=== PATIENT | female | born 1950 | race Caucasian/White ===

== ENCOUNTER 2018-04-09 19:26 | Inpatient (IN) | payer MEDICARE ==
[~2018-04-09] VITALS: Ht 157.5 cm; Wt 91.2 kg
[2018-04-09] MEDS ORDERED: SODIUM CHLORIDE 0.9% 1000ML BAG (SEPSIS BOLUS) IV ONE (20:30)
[2018-04-09 22:07] LABS: BASOPHILS % 0.5 % (0.0-2.0); EOSINOPHILS % 1.3 % (0.0-5.0); HEMATOCRIT. 42.9 % (36.0-48.0); HEMOGLOBIN. 14.4 g/dL (12.0-16.0); LYMPHOCYTES % 13.6 % (20.0-50.0); MEAN CORPUSCULAR HEMOGLOBIN 29.2 pg (28.0-32.0); MEAN CORPUSCULAR VOLUME 87.1 fL (81.0-99.0); MONOCYTES % 10.9 % (2.0-8.0); NEUTROPHILS % 73.7 % (40.0-76.0); PLATELET 255 x1000/uL (130-400); RED BLOOD CELL COUNT 4.93 mill/uL (4.2-5.4); RED CELL DISTRIBUTION WIDTH 13.5 % (11.6-14.6)
[2018-04-09 22:12] LABS: CHLORIDE 95 mEq/L (98-107)
[2018-04-09 22:15] LABS: INR 1.2; PROTHROMBIN TIME 11.7 sec (9.1-11.1)
[2018-04-09 22:16] LABS: ETHANOL BLOOD < 10 mg/dL
[2018-04-09 23:56] LABS: *AMPHETAMINES SCREEN URINE NEGATIVE (NEGATIVE); *BARBITURATES SCREEN URINE NEGATIVE (NEGATIVE); *BENZODIAZEPINES SCREEN URINE NEGATIVE (NEGATIVE); *COCAINE SCREEN URINE NEGATIVE (NEGATIVE); METHADONE URINE SCREEN NEGATIVE (NEGATIVE); OPIATES URINE SCREEN NEGATIVE (NEGATIVE)
[2018-04-09 23:57] LABS: CANNABINOID URINE SCREEN NEGATIVE (NEGATIVE); PHENCYCLIDINE URINE SCREEN NEGATIVE (NEGATIVE)
[2018-04-10 00:11] LABS: COLOR URINE YELLOW (YELLOW)
[2018-04-10 00:12] LABS: CLARITY URINE CLOUDY (CLEAR); PH URINE 5.5 (4.5-8.0); PROTEIN URINE NEGATIVE (NEGATIVE); SPECIFIC GRAVITY URINE 1.017 (1.005-1.030)
[2018-04-10 00:13] LABS: KETONES URINE NEGATIVE (NEGATIVE); NITRITE URINE NEGATIVE (NEGATIVE); OCCULT BLOOD URINE 3+ (NEGATIVE)
[2018-04-10 00:14] LABS: LEUKOCYTE ESTERASE URINE 2+ (NEGATIVE)
[2018-04-10] MEDS ORDERED: CEFTRIAXONE 1 G PREMIX 50 ML IV ONE (00:30)
[2018-04-10 09:57] VITALS: BP 124/59
[2018-04-10] MEDS ORDERED: ONDANSETRON HCL 4MG/2ML INJ IV PRN (10:30)
[2018-04-10] MEDS ORDERED: CLONIDINE 0.1MG TABLET PO PRN (10:30)
[2018-04-10] MEDS ORDERED: IPRATROPIUM/ALBUTEROL 0.5-3(2.5)MG/3ML NEB HHN PRN (10:30)
[2018-04-10] MEDS: MORPHINE SULFATE 4 MG/ML CPJ (NOT FOR IM USE) IV PRN (11:25)
[2018-04-10] MEDS ORDERED: INFLUENZA VIRUS VACCINE(AFLURIA) 0.5ML SYR IM ONE (11:30)
[2018-04-10] MEDS ORDERED: PNEUMOCOCCAL 23-VAL P-SAC VAC 0.5 ML IM ONE (11:30)
[2018-04-10] MEDS: SODIUM CHLORIDE 0.45% 1,000 ML IV SCH (13:41)
[2018-04-10] MEDS: LEVOFLOXACIN 750MG PREMIX 150 ML IV SCH (13:42)
[2018-04-10] MEDS: NICOTINE 21MG PATCH TD SCH (14:34)
[2018-04-10 16:00] VITALS: BP 123/68
[2018-04-10] MEDS ORDERED: LORAZEPAM 2MG/ML CPJ IV SCH (16:30)
[2018-04-10 20:00] VITALS: BP 99/68
[2018-04-11] VITALS: BP 126/69
[2018-04-11] MEDS: SODIUM CHLORIDE 0.45% 1,000 ML IV SCH ×2 (03:23→11:35)
[2018-04-11 04:00] VITALS: BP 142/58
[2018-04-11 07:11] LABS: BASOPHILS % 0.9 % (0.0-2.0); EOSINOPHILS % 5.5 % (0.0-5.0); HEMATOCRIT. 36.1 % (36.0-48.0); LYMPHOCYTES % 20.6 % (20.0-50.0); MEAN CORPUSCULAR HEMOGLOBIN 29.1 pg (28.0-32.0); MEAN CORPUSCULAR VOLUME 87.1 fL (81.0-99.0); MEAN PLATELET VOLUME 9.9 fl (7.4-10.4); MONOCYTES % 10.5 % (2.0-8.0); NEUTROPHILS % 62.5 % (40.0-76.0); PLATELET 260 x1000/uL (130-400); RED BLOOD CELL COUNT 4.14 mill/uL (4.2-5.4); RED CELL DISTRIBUTION WIDTH 13.5 % (11.6-14.6)
[2018-04-11 08:00] VITALS: BP 149/67
[2018-04-11 09:08] LABS: CHLORIDE 104 mEq/L (98-107)
[2018-04-11] MEDS: TRAMADOL 50MG TABLET PO PRN (09:29)
[2018-04-11] MEDS: NICOTINE 21MG PATCH TD SCH (09:30)
[2018-04-11] MEDS ORDERED: POTASSIUM CHLORIDE 20MEQ TABLET SR PO NR (09:45)
[2018-04-11] MEDS: ENOXAPARIN 40MG/0.4ML SYR SUBCUT SCH (11:32)
[2018-04-11] MEDS: LEVOFLOXACIN 750MG PREMIX 150 ML IV SCH (11:34)
[2018-04-11 12:00] VITALS: BP 13/65
[2018-04-11 12:13] LABS: LDL CHOLESTEROL 73 mg/dL (5-100)
[2018-04-11 12:16] LABS: HDL CHOLESTEROL 23 mg/dL (40-59)
[2018-04-11] MEDS: MORPHINE SULFATE 4 MG/ML CPJ (NOT FOR IM USE) IV PRN (15:31)
[2018-04-11 16:00] VITALS: BP 106/50
[2018-04-11 20:00] VITALS: BP 151/70
[2018-04-12] VITALS: BP 149/71
[2018-04-12 04:00] VITALS: BP 149/81
[2018-04-12] MEDS: SODIUM CHLORIDE 0.45% 1,000 ML IV SCH ×2 (07:01→18:04)
[2018-04-12 08:00] VITALS: BP 122/64
[2018-04-12 08:26] LABS: BASOPHILS % 0.7 % (0.0-2.0); EOSINOPHILS % 1.9 % (0.0-5.0); HEMATOCRIT. 37.3 % (36.0-48.0); HEMOGLOBIN. 12.5 g/dL (12.0-16.0); LYMPHOCYTES % 14.4 % (20.0-50.0); MEAN CORPUSCULAR HEMOGLOBIN 28.9 pg (28.0-32.0); MEAN CORPUSCULAR VOLUME 86.3 fL (81.0-99.0); MEAN PLATELET VOLUME 9.3 fl (7.4-10.4); MONOCYTES % 9.3 % (2.0-8.0); NEUTROPHILS % 73.7 % (40.0-76.0); PLATELET 298 x1000/uL (130-400); RED BLOOD CELL COUNT 4.32 mill/uL (4.2-5.4); RED CELL DISTRIBUTION WIDTH 13.4 % (11.6-14.6)
[2018-04-12 08:56] LABS: CHLORIDE 99 mEq/L (98-107)
[2018-04-12] MEDS ORDERED: POTASSIUM CHLORIDE 20MEQ TABLET SR PO SCH (09:00)
[2018-04-12] MEDS: NICOTINE 21MG PATCH TD SCH (09:41)
[2018-04-12] MEDS: ENOXAPARIN 40MG/0.4ML SYR SUBCUT SCH (09:41)
[2018-04-12 12:00] VITALS: BP 138/71
[2018-04-12] MEDS: LEVOFLOXACIN 750MG PREMIX 150 ML IV SCH (13:43)
[2018-04-12 14:31] LABS: T4 FREE 1.77 ng/dL (0.76-1.46)
[2018-04-12 16:00] VITALS: BP 141/67
[2018-04-12] MEDS: MORPHINE SULFATE 4 MG/ML CPJ (NOT FOR IM USE) IV PRN (18:07)
[2018-04-12 20:00] VITALS: BP 126/57
[2018-04-13] VITALS: BP 136/65
[2018-04-13 04:00] VITALS: BP 106/59
[2018-04-13] MEDS: SODIUM CHLORIDE 0.45% 1,000 ML IV SCH ×2 (07:07→22:50)
[2018-04-13 07:09] LABS: EOSINOPHILS % 4.4 % (0.0-5.0); HEMATOCRIT. 36.6 % (36.0-48.0); HEMOGLOBIN. 12.2 g/dL (12.0-16.0); LYMPHOCYTES % 21.7 % (20.0-50.0); MEAN CORPUSCULAR HEMOGLOBIN 28.8 pg (28.0-32.0); MEAN CORPUSCULAR VOLUME 86.4 fL (81.0-99.0); MONOCYTES % 10.4 % (2.0-8.0); NEUTROPHILS % 62.5 % (40.0-76.0); PLATELET 285 x1000/uL (130-400); RED BLOOD CELL COUNT 4.24 mill/uL (4.2-5.4); RED CELL DISTRIBUTION WIDTH 13.5 % (11.6-14.6)
[2018-04-13 07:29] LABS: CHLORIDE 102 mEq/L (98-107)
[2018-04-13 08:00] VITALS: BP 130/62
[2018-04-13] MEDS: NICOTINE 21MG PATCH TD SCH (09:18)
[2018-04-13] MEDS: ENOXAPARIN 40MG/0.4ML SYR SUBCUT SCH (09:19)
[2018-04-13 12:00] VITALS: BP 130/62
[2018-04-13] MEDS: LEVOFLOXACIN 750MG PREMIX 150 ML IV SCH (12:47)
[2018-04-13] MEDS: MORPHINE SULFATE 4 MG/ML CPJ (NOT FOR IM USE) IV PRN ×2 (12:48→19:37)
[2018-04-13 16:00] VITALS: BP 120/61
[2018-04-13 20:00] VITALS: BP 130/64
[2018-04-13] MEDS: METHIMAZOLE 5MG TABLET PO SCH (20:30)
[2018-04-14] VITALS: BP 163/63
[2018-04-14 04:00] VITALS: BP 124/85
[2018-04-14] MEDS: MORPHINE SULFATE 4 MG/ML CPJ (NOT FOR IM USE) IV PRN ×2 (05:12→11:22)
[2018-04-14 07:42] LABS: HEMATOCRIT. 39.6 % (36.0-48.0); HEMOGLOBIN. 13.4 g/dL (12.0-16.0); LYMPHOCYTES % 20.6 % (20.0-50.0); MEAN CORPUSCULAR HEMOGLOBIN 29.3 pg (28.0-32.0); MEAN CORPUSCULAR VOLUME 86.7 fL (81.0-99.0); MEAN PLATELET VOLUME 8.7 fl (7.4-10.4); MONOCYTES % 9.6 % (2.0-8.0); NEUTROPHILS % 65.8 % (40.0-76.0); PLATELET 337 x1000/uL (130-400); RED BLOOD CELL COUNT 4.57 mill/uL (4.2-5.4); RED CELL DISTRIBUTION WIDTH 13.5 % (11.6-14.6)
[2018-04-14 08:00] VITALS: BP 156/72
[2018-04-14 08:36] LABS: CHLORIDE 101 mEq/L (98-107)
[2018-04-14] MEDS: TRAMADOL 50MG TABLET PO PRN ×2 (09:25→22:11)
[2018-04-14] MEDS: ENOXAPARIN 40MG/0.4ML SYR SUBCUT SCH (09:27)
[2018-04-14] MEDS: NICOTINE 21MG PATCH TD SCH (09:27)
[2018-04-14] MEDS: METHIMAZOLE 5MG TABLET PO SCH (09:32)
[2018-04-14] MEDS: SODIUM CHLORIDE 0.45% 1,000 ML IV SCH ×2 (11:28→22:10)
[2018-04-14] MEDS: LEVOFLOXACIN 750MG PREMIX 150 ML IV SCH (11:29)
[2018-04-14 12:00] VITALS: BP 154/74
[2018-04-14 16:00] VITALS: BP 168/86
[2018-04-14 20:00] VITALS: BP 157/77
[2018-04-14] MEDS: PROPRANOLOL HCL 10MG TABLET PO SCH (22:09)
[2018-04-15] VITALS: BP 144/82
[2018-04-15 04:00] VITALS: BP 149/79
[2018-04-15] MEDS ORDERED: LIDOCAINE HCL/EPINEPHRINE 1%-EPI 1:100,000 20 ML VIAL INFIL SCH (07:00)
[2018-04-15 08:00] VITALS: BP 146/65
[2018-04-15 09:44] LABS: BASOPHILS % 1.3 % (0.0-2.0); EOSINOPHILS % 5.8 % (0.0-5.0); HEMATOCRIT. 41.5 % (36.0-48.0); HEMOGLOBIN. 13.9 g/dL (12.0-16.0); MEAN CORPUSCULAR HEMOGLOBIN 29.5 pg (28.0-32.0); MEAN PLATELET VOLUME 8.7 fl (7.4-10.4); MONOCYTES % 10.8 % (2.0-8.0); NEUTROPHILS % 61.1 % (40.0-76.0); PLATELET 329 x1000/uL (130-400); RED BLOOD CELL COUNT 4.71 mill/uL (4.2-5.4); RED CELL DISTRIBUTION WIDTH 13.6 % (11.6-14.6)
[2018-04-15] MEDS: NICOTINE 21MG PATCH TD SCH (09:58)
[2018-04-15] MEDS: METHIMAZOLE 5MG TABLET PO SCH (09:59)
[2018-04-15] MEDS: ENOXAPARIN 40MG/0.4ML SYR SUBCUT SCH (09:59)
[2018-04-15] MEDS: PROPRANOLOL HCL 10MG TABLET PO SCH ×2 (10:00→22:09)
[2018-04-15] MEDS: MORPHINE SULFATE 4 MG/ML CPJ (NOT FOR IM USE) IV PRN (10:02)
[2018-04-15 10:39] LABS: CHLORIDE 100 mEq/L (98-107)
[2018-04-15 12:00] VITALS: BP 137/58
[2018-04-15] MEDS: LEVOFLOXACIN 750MG PREMIX 150 ML IV SCH (13:03)
[2018-04-15 16:00] VITALS: BP 137/60
[2018-04-15 20:00] VITALS: BP 111/64
[2018-04-15] MEDS: SODIUM CHLORIDE 0.45% 1,000 ML IV SCH ×2 (22:09→23:50)
[2018-04-15] MEDS: ACETAMINOPHEN 325MG TABLET PO PRN (23:49)
[2018-04-16] VITALS: BP 158/63
[2018-04-16] MEDS: MORPHINE SULFATE 4 MG/ML CPJ (NOT FOR IM USE) IV PRN ×2 (02:23→22:51)
[2018-04-16 04:00] VITALS: BP 125/44
[2018-04-16 07:08] LABS: BASOPHILS % 1.2 % (0.0-2.0); EOSINOPHILS % 5.4 % (0.0-5.0); HEMATOCRIT. 38.9 % (36.0-48.0); HEMOGLOBIN. 13.4 g/dL (12.0-16.0); LYMPHOCYTES % 28.3 % (20.0-50.0); MEAN CORPUSCULAR VOLUME 86.7 fL (81.0-99.0); MEAN PLATELET VOLUME 8.2 fl (7.4-10.4); NEUTROPHILS % 53.1 % (40.0-76.0); PLATELET 347 x1000/uL (130-400); RED BLOOD CELL COUNT 4.48 mill/uL (4.2-5.4); RED CELL DISTRIBUTION WIDTH 13.7 % (11.6-14.6)
[2018-04-16 08:00] VITALS: BP 124/56
[2018-04-16] MEDS: PROPRANOLOL HCL 10MG TABLET PO SCH ×2 (08:55→22:54)
[2018-04-16] MEDS: METHIMAZOLE 5MG TABLET PO SCH (08:56)
[2018-04-16] MEDS: NICOTINE 21MG PATCH TD SCH (08:57)
[2018-04-16] MEDS: ENOXAPARIN 40MG/0.4ML SYR SUBCUT SCH (08:57)
[2018-04-16] MEDS: LEVOFLOXACIN 750MG PREMIX 150 ML IV SCH (11:19)
[2018-04-16 12:00] VITALS: BP 123/52
[2018-04-16 15:06] LABS: CHLORIDE 99 mEq/L (98-107)
[2018-04-16 15:06] LABS: T4 FREE 1.65 ng/dL (0.76-1.46)
[2018-04-16 15:08] LABS: HDL CHOLESTEROL 31 mg/dL (40-59)
[2018-04-16 15:09] LABS: LDL CHOLESTEROL 113 mg/dL (5-100)
[2018-04-16 16:00] VITALS: BP 129/59
[2018-04-16 20:00] VITALS: BP 137/69
[2018-04-17] VITALS: BP 146/56
[2018-04-17] MEDS: SODIUM CHLORIDE 0.45% 1,000 ML IV SCH ×2 (02:30→19:44)
[2018-04-17 04:00] VITALS: BP 145/63
[2018-04-17] MEDS: MORPHINE SULFATE 4 MG/ML CPJ (NOT FOR IM USE) IV PRN ×2 (05:13→19:43)
[2018-04-17 07:22] LABS: BASOPHILS % 1.2 % (0.0-2.0); EOSINOPHILS % 5.4 % (0.0-5.0); HEMATOCRIT. 39.9 % (36.0-48.0); HEMOGLOBIN. 13.5 g/dL (12.0-16.0); LYMPHOCYTES % 27.9 % (20.0-50.0); MEAN CORPUSCULAR HEMOGLOBIN 29.3 pg (28.0-32.0); MEAN CORPUSCULAR VOLUME 86.8 fL (81.0-99.0); MEAN PLATELET VOLUME 8.6 fl (7.4-10.4); MONOCYTES % 10.9 % (2.0-8.0); NEUTROPHILS % 54.6 % (40.0-76.0); PLATELET 326 x1000/uL (130-400); RED CELL DISTRIBUTION WIDTH 13.7 % (11.6-14.6)
[2018-04-17 08:00] VITALS: BP 115/47
[2018-04-17] MEDS: ENOXAPARIN 40MG/0.4ML SYR SUBCUT SCH (08:56)
[2018-04-17] MEDS: NICOTINE 21MG PATCH TD SCH (08:56)
[2018-04-17] MEDS: PROPRANOLOL HCL 10MG TABLET PO SCH ×2 (08:56→20:09)
[2018-04-17] MEDS: METHIMAZOLE 5MG TABLET PO SCH (08:56)
[2018-04-17 09:32] LABS: CHLORIDE 101 mEq/L (98-107)
[2018-04-17] MEDS: LEVOFLOXACIN 750MG PREMIX 150 ML IV SCH (11:59)
[2018-04-17 12:00] VITALS: BP 136/52
[2018-04-17 16:00] VITALS: BP 107/56
[2018-04-17 18:00] LABS: FOLIC ACID (FOLATE) SERUM 7.3 ng/mL (>5.38)
[2018-04-17 20:00] VITALS: BP 125/53
[2018-04-17] MEDS: LORAZEPAM 2MG/ML CPJ IV PRN (21:39)
[2018-04-18] VITALS: BP 132/55
[2018-04-18] MEDS: MORPHINE SULFATE 4 MG/ML CPJ (NOT FOR IM USE) IV PRN ×4 (00:02→16:16)
[2018-04-18 04:00] VITALS: BP 132/61
[2018-04-18] MEDS: SODIUM CHLORIDE 0.45% 1,000 ML IV SCH ×2 (05:56→18:26)
[2018-04-18 08:00] VITALS: BP 134/64
[2018-04-18] MEDS: NICOTINE 21MG PATCH TD SCH (08:53)
[2018-04-18] MEDS: METHIMAZOLE 5MG TABLET PO SCH (08:53)
[2018-04-18] MEDS: PROPRANOLOL HCL 10MG TABLET PO SCH ×2 (08:53→20:16)
[2018-04-18] MEDS: ENOXAPARIN 40MG/0.4ML SYR SUBCUT SCH (08:55)
[2018-04-18 12:00] VITALS: BP 94/74
[2018-04-18 16:00] VITALS: BP 144/61
[2018-04-18 20:00] VITALS: BP 137/64
[2018-04-18] MEDS: ACETAMINOPHEN 325MG TABLET PO PRN (20:16)
[2018-04-18] MEDS: LORAZEPAM 2MG/ML CPJ IV PRN (23:03)
[2018-04-19] VITALS: BP 127/68
[2018-04-19 04:00] VITALS: BP 125/65
[2018-04-19] MEDS: SODIUM CHLORIDE 0.45% 1,000 ML IV SCH ×2 (04:32→17:24)
[2018-04-19 08:00] VITALS: BP 145/62
[2018-04-19] MEDS: METHIMAZOLE 5MG TABLET PO SCH (09:04)
[2018-04-19] MEDS: PROPRANOLOL HCL 10MG TABLET PO SCH ×2 (09:04→20:06)
[2018-04-19] MEDS: ENOXAPARIN 40MG/0.4ML SYR SUBCUT SCH (09:04)
[2018-04-19] MEDS: NICOTINE 21MG PATCH TD SCH (09:05)
[2018-04-19] MEDS ORDERED: LIDOCAINE HCL/EPINEPHRINE 1%-EPI 1:100,000 30 ML VIAL INFIL SCH (10:15)
[2018-04-19] MEDS: HYDROCODONE/ACETAMINOPHEN 5/325MG TABLET PO PRN ×3 (11:17→22:55)
[2018-04-19 12:00] VITALS: BP 140/53
[2018-04-19 15:38] VITALS: BP 143/65
[2018-04-19 20:00] VITALS: BP 129/50
[2018-04-19] MEDS: ENOXAPARIN 30MG/0.3ML SYR SUBCUT SCH (20:06)
[2018-04-19] MEDS: MORPHINE SULFATE 4 MG/ML CPJ (NOT FOR IM USE) IV PRN (20:07)
[2018-04-20] VITALS: BP_SYST 119; BP_SYST 133; BP_DIAS 40; BP_DIAS 73
[2018-04-20] MEDS: LORAZEPAM 2MG/ML CPJ IV PRN ×2 (00:28→07:56)
[2018-04-20 04:00] VITALS: BP 133/50
[2018-04-20] MEDS: HYDROCODONE/ACETAMINOPHEN 5/325MG TABLET PO PRN ×3 (04:49→20:23)
[2018-04-20 07:26] LABS: BASOPHILS % 1.3 % (0.0-2.0); EOSINOPHILS % 7.2 % (0.0-5.0); HEMATOCRIT. 36.6 % (36.0-48.0); HEMOGLOBIN. 12.3 g/dL (12.0-16.0); LYMPHOCYTES % 35.1 % (20.0-50.0); MEAN CORPUSCULAR HEMOGLOBIN 29.2 pg (28.0-32.0); MEAN CORPUSCULAR VOLUME 87.1 fL (81.0-99.0); MEAN PLATELET VOLUME 7.9 fl (7.4-10.4); MONOCYTES % 11.2 % (2.0-8.0); NEUTROPHILS % 45.2 % (40.0-76.0); PLATELET 309 x1000/uL (130-400); RED CELL DISTRIBUTION WIDTH 13.6 % (11.6-14.6)
[2018-04-20 07:44] LABS: CHLORIDE 105 mEq/L (98-107)
[2018-04-20 08:00] VITALS: BP 112/53
[2018-04-20] MEDS: PROPRANOLOL HCL 10MG TABLET PO SCH ×2 (09:16→20:33)
[2018-04-20] MEDS: METHIMAZOLE 5MG TABLET PO SCH ×2 (09:16→18:12)
[2018-04-20] MEDS: NICOTINE 21MG PATCH TD SCH (09:17)
[2018-04-20] MEDS: ENOXAPARIN 30MG/0.3ML SYR SUBCUT SCH ×2 (09:17→20:32)
[2018-04-20] MEDS: SODIUM CHLORIDE 0.45% 1,000 ML IV SCH ×2 (11:28→20:34)
[2018-04-20 12:00] VITALS: BP 125/51
[2018-04-20] MEDS: MORPHINE SULFATE 4 MG/ML CPJ (NOT FOR IM USE) IV PRN (13:37)
[2018-04-20 16:00] VITALS: BP 143/63
[2018-04-20 20:00] VITALS: BP 132/48
[2018-04-21] VITALS: BP 160/70
[2018-04-21] MEDS: MORPHINE SULFATE 4 MG/ML CPJ (NOT FOR IM USE) IV PRN (00:39)
[2018-04-21 04:00] VITALS: BP 129/57
[2018-04-21 07:33] LABS: BASOPHILS % 1.1 % (0.0-2.0); EOSINOPHILS % 3.3 % (0.0-5.0); HEMATOCRIT. 36.9 % (36.0-48.0); HEMOGLOBIN. 12.5 g/dL (12.0-16.0); LYMPHOCYTES % 31.3 % (20.0-50.0); MEAN CORPUSCULAR HEMOGLOBIN 29.3 pg (28.0-32.0); MEAN CORPUSCULAR VOLUME 86.5 fL (81.0-99.0); MEAN PLATELET VOLUME 8.3 fl (7.4-10.4); MONOCYTES % 9.4 % (2.0-8.0); NEUTROPHILS % 54.9 % (40.0-76.0); PLATELET 322 x1000/uL (130-400); RED BLOOD CELL COUNT 4.26 mill/uL (4.2-5.4); RED CELL DISTRIBUTION WIDTH 13.6 % (11.6-14.6)
[2018-04-21 07:46] LABS: CHLORIDE 103 mEq/L (98-107)
[2018-04-21 08:00] VITALS: BP 163/59
[2018-04-21] MEDS: METHIMAZOLE 5MG TABLET PO SCH ×2 (08:40→16:18)
[2018-04-21] MEDS: PROPRANOLOL HCL 10MG TABLET PO SCH ×2 (08:40→20:33)
[2018-04-21] MEDS: NICOTINE 21MG PATCH TD SCH (08:41)
[2018-04-21] MEDS: ENOXAPARIN 30MG/0.3ML SYR SUBCUT SCH ×2 (08:41→20:33)
[2018-04-21 12:00] VITALS: BP 110/58
[2018-04-21] MEDS: HYDROCODONE/ACETAMINOPHEN 5/325MG TABLET PO PRN ×2 (12:53→18:36)
[2018-04-21] MEDS: SODIUM CHLORIDE 0.45% 1,000 ML IV SCH (12:53)
[2018-04-21 16:00] VITALS: BP 144/69
[2018-04-21 20:00] VITALS: BP 127/52
[2018-04-21] MEDS: LORAZEPAM 2MG/ML CPJ IV PRN (20:34)
[2018-04-22] VITALS: BP 127/49
[2018-04-22] MEDS: SODIUM CHLORIDE 0.45% 1,000 ML IV SCH (01:09)
[2018-04-22 04:00] VITALS: BP 147/62
[2018-04-22 06:44] LABS: BASOPHILS % 1.4 % (0.0-2.0); EOSINOPHILS % 7.1 % (0.0-5.0); HEMATOCRIT. 38.2 % (36.0-48.0); LYMPHOCYTES % 31.6 % (20.0-50.0); MEAN CORPUSCULAR HEMOGLOBIN 29.7 pg (28.0-32.0); MEAN CORPUSCULAR VOLUME 86.8 fL (81.0-99.0); MEAN PLATELET VOLUME 7.8 fl (7.4-10.4); MONOCYTES % 10.6 % (2.0-8.0); NEUTROPHILS % 49.3 % (40.0-76.0); PLATELET 325 x1000/uL (130-400); RED CELL DISTRIBUTION WIDTH 14.3 % (11.6-14.6)
[2018-04-22 06:55] LABS: CHLORIDE 105 mEq/L (98-107)
[2018-04-22] MEDS ORDERED: BUPIVACAINE HCL/EPINEPHRINE 0.5%/0.0005 30ML ONE (07:10)
[2018-04-22] MEDS ORDERED: NORMAL SALINE 0.9% 10 ML SYR ONE (07:10)
[2018-04-22] MEDS ORDERED: BUPIVACAINE HCL 0.5% (5MG/ML) 50ML ONE (07:10)
[2018-04-22] MEDS ORDERED: BACITRACIN 50,000 UNITS/VIAL ONE (07:10)
[2018-04-22] MEDS ORDERED: VANCOMYCIN HCL 500 MG/VIAL ONE (07:10)
[2018-04-22] MEDS ORDERED: MIDAZOLAM HCL 2 MG/2 ML VIAL ONE (07:43)
[2018-04-22] MEDS ORDERED: FENTANYL CITRATE/PF 50MCG/ML 2ML VIAL ONE ×4 (07:43→09:05)
[2018-04-22] MEDS ORDERED: GLYCOPYRROLATE 0.2 MG/ML 2ML VIAL ONE ×2 (07:43→08:09)
[2018-04-22] MEDS ORDERED: PROPOFOL 200MG/20ML VIAL IV ONE (07:43)
[2018-04-22] MEDS ORDERED: LIDOCAINE HCL 1% 20ML VIAL (Pyxis) INJ ONE (07:44)
[2018-04-22] MEDS ORDERED: ONDANSETRON HCL 4MG/2ML INJ ONE (07:44)
[2018-04-22] MEDS ORDERED: METOCLOPRAMIDE HCL 10MG/2ML VIAL ONE (07:44)
[2018-04-22] MEDS ORDERED: SUCCINYLCHOLINE CHLORIDE 200MG/10ML IV ONE (07:44)
[2018-04-22] MEDS ORDERED: CEFAZOLIN SODIUM 1000MG/VIAL ONE (07:45)
[2018-04-22] MEDS ORDERED: ROCURONIUM BROMIDE 10MG/ML VIAL 5ML IV ONE (08:08)
[2018-04-22] MEDS ORDERED: NEOSTIGMINE METHYLSULFATE 1MG/ML 10 ML VIAL ONE (08:09)
[2018-04-22] MEDS ORDERED: ROPIVACAINE HCL 10MG/ML 20 ML VIAL EPI ONE (09:13)
[2018-04-22] MEDS ORDERED: HYDROMORPHONE HCL/PF 2MG/ML (OR) ONE (09:37)
[2018-04-22] MEDS ORDERED: SODIUM CHLORIDE 0.9% 1,000 ML IV ONE (09:52)
[2018-04-22] MEDS: MORPHINE SULFATE 4 MG/ML CPJ (NOT FOR IM USE) IV PRN ×3 (09:58→21:02)
[2018-04-22] MEDS ORDERED: ONDANSETRON HCL 4MG/2ML INJ IV PRN (10:00)
[2018-04-22] MEDS: HYDROMORPHONE HCL/PF 2MG/ML CPJ IV PRN ×3 (10:18→11:08)
[2018-04-22 12:00] VITALS: BP 158/78
[2018-04-22] MEDS: PROPRANOLOL HCL 10MG TABLET PO SCH ×2 (12:35→21:00)
[2018-04-22] MEDS: METHIMAZOLE 5MG TABLET PO SCH ×2 (12:35→17:03)
[2018-04-22] MEDS: ENOXAPARIN 30MG/0.3ML SYR SUBCUT SCH ×2 (12:35→21:01)
[2018-04-22] MEDS: NICOTINE 21MG PATCH TD SCH (12:36)
[2018-04-22] MEDS ORDERED: CEFAZOLIN SODIUM 1000MG/VIAL IV SCH (14:00)
[2018-04-22] MEDS: CEFAZOLIN 1000MG PREMIX 50 ML IV SCH ×2 (15:11→21:01)
[2018-04-22 16:00] VITALS: BP 145/60
[2018-04-22 16:18] LABS: PROTHROMBIN TIME 10.4 sec (9.1-11.1)
[2018-04-22 20:00] VITALS: BP 130/56
[2018-04-22] MEDS: HYDROCODONE/ACETAMINOPHEN 5/325MG TABLET PO PRN (22:27)
[2018-04-23] VITALS: BP 113/59
[2018-04-23] MEDS: MORPHINE SULFATE 4 MG/ML CPJ (NOT FOR IM USE) IV PRN ×3 (02:07→14:29)
[2018-04-23 04:00] VITALS: BP 118/52
[2018-04-23] MEDS: CEFAZOLIN 1000MG PREMIX 50 ML IV SCH (05:11)
[2018-04-23] MEDS: HYDROCODONE/ACETAMINOPHEN 5/325MG TABLET PO PRN ×3 (05:25→20:23)
[2018-04-23 06:53] LABS: EOSINOPHILS % 4.9 % (0.0-5.0); HEMATOCRIT. 34.4 % (36.0-48.0); HEMOGLOBIN. 11.5 g/dL (12.0-16.0); LYMPHOCYTES % 21.3 % (20.0-50.0); MEAN CORPUSCULAR HEMOGLOBIN 29.3 pg (28.0-32.0); MEAN PLATELET VOLUME 8.3 fl (7.4-10.4); MONOCYTES % 5.5 % (2.0-8.0); NEUTROPHILS % 67.3 % (40.0-76.0); PLATELET 254 x1000/uL (130-400); RED BLOOD CELL COUNT 3.95 mill/uL (4.2-5.4); RED CELL DISTRIBUTION WIDTH 14.1 % (11.6-14.6)
[2018-04-23 07:01] LABS: CHLORIDE 99 mEq/L (98-107)
[2018-04-23 08:00] VITALS: BP 113/60
[2018-04-23] MEDS: METHIMAZOLE 5MG TABLET PO SCH ×2 (08:39→17:54)
[2018-04-23] MEDS: PROPRANOLOL HCL 10MG TABLET PO SCH ×2 (08:40→20:21)
[2018-04-23] MEDS: ENOXAPARIN 30MG/0.3ML SYR SUBCUT SCH ×2 (08:40→20:22)
[2018-04-23] MEDS: NICOTINE 21MG PATCH TD SCH (08:40)
[2018-04-23 12:00] VITALS: BP 112/80
[2018-04-23] MEDS: OXYCODONE HCL 5MG TABLET PO SCH ×2 (14:52→17:54)
[2018-04-23 16:00] VITALS: BP 118/58
[2018-04-23 20:00] VITALS: BP 158/61
[2018-04-24] VITALS: BP 143/54
[2018-04-24] MEDS: HYDROCODONE/ACETAMINOPHEN 5/325MG TABLET PO PRN (02:53)
[2018-04-24 04:00] VITALS: BP 137/64
[2018-04-24] MEDS: MORPHINE SULFATE 4 MG/ML CPJ (NOT FOR IM USE) IV PRN ×2 (05:45→10:39)
[2018-04-24 07:35] LABS: BASOPHILS % 0.9 % (0.0-2.0); EOSINOPHILS % 6.1 % (0.0-5.0); HEMATOCRIT. 33.9 % (36.0-48.0); HEMOGLOBIN. 11.5 g/dL (12.0-16.0); LYMPHOCYTES % 21.7 % (20.0-50.0); MEAN CORPUSCULAR HEMOGLOBIN 29.4 pg (28.0-32.0); MEAN PLATELET VOLUME 8.5 fl (7.4-10.4); MONOCYTES % 6.8 % (2.0-8.0); NEUTROPHILS % 64.5 % (40.0-76.0); PLATELET 221 x1000/uL (130-400); RED BLOOD CELL COUNT 3.89 mill/uL (4.2-5.4); RED CELL DISTRIBUTION WIDTH 14.2 % (11.6-14.6)
[2018-04-24 08:00] VITALS: BP 142/58
[2018-04-24 08:03] LABS: CHLORIDE 101 mEq/L (98-107)
[2018-04-24] MEDS: METHIMAZOLE 5MG TABLET PO SCH ×2 (08:16→17:11)
[2018-04-24] MEDS: PROPRANOLOL HCL 10MG TABLET PO SCH ×2 (08:16→20:38)
[2018-04-24] MEDS: HYDROCODONE/ACETAMINOPHEN 5/325MG TABLET PO SCH (08:18)
[2018-04-24] MEDS: OXYCODONE HCL 5MG TABLET PO SCH ×5 (08:19→20:38)
[2018-04-24] MEDS: ENOXAPARIN 30MG/0.3ML SYR SUBCUT SCH ×2 (08:20→20:37)
[2018-04-24] MEDS: NICOTINE 21MG PATCH TD SCH (08:21)
[2018-04-24 12:00] VITALS: BP 107/41
[2018-04-24] MEDS ORDERED: LIDOCAINE HCL/EPINEPHRINE 1%-EPI 1:100,000 30 ML VIAL INFIL SCH (13:00)
[2018-04-24] MEDS ORDERED: LIDOCAINE HCL/EPINEPHRINE 1%-EPI 1:100,000 20 ML VIAL INFIL SCH (13:02)
[2018-04-24] MEDS ORDERED: POTASSIUM CHLORIDE 20MEQ TABLET SR PO SCH (13:15)
[2018-04-24 16:00] VITALS: BP 127/59
[2018-04-24 20:00] VITALS: BP 133/51
[2018-04-25] VITALS (7 sets, daily range): BP systolic 128–153; BP diastolic 46–65
[2018-04-25] MEDS: MORPHINE SULFATE 10MG/5ML ORAL SOLN UDC PO PRN (02:46)
[2018-04-25 06:55] LABS: HEMATOCRIT. 34.9 % (36.0-48.0); HEMOGLOBIN. 11.9 g/dL (12.0-16.0); MEAN CORPUSCULAR HEMOGLOBIN 29.6 pg (28.0-32.0); MEAN CORPUSCULAR VOLUME 86.8 fL (81.0-99.0); RED BLOOD CELL COUNT 4.02 mill/uL (4.2-5.4); RED CELL DISTRIBUTION WIDTH 14.3 % (11.6-14.6)
[2018-04-25 06:56] LABS: BASOPHILS % 1.2 % (0.0-2.0); EOSINOPHILS % 7.1 % (0.0-5.0); LYMPHOCYTES % 24.9 % (20.0-50.0); MEAN PLATELET VOLUME 8.6 fl (7.4-10.4); MONOCYTES % 10.6 % (2.0-8.0); NEUTROPHILS % 56.2 % (40.0-76.0); PLATELET 236 x1000/uL (130-400)
[2018-04-25 07:08] LABS: CHLORIDE 100 mEq/L (98-107)
[2018-04-25] MEDS: NICOTINE 21MG PATCH TD SCH (09:00)
[2018-04-25] MEDS: HYDROCODONE/ACETAMINOPHEN 5/325MG TABLET PO SCH (09:20)
[2018-04-25] MEDS: PROPRANOLOL HCL 10MG TABLET PO SCH ×2 (09:21→21:39)
[2018-04-25] MEDS: OXYCODONE HCL 5MG TABLET PO SCH ×4 (09:21→21:40)
[2018-04-25] MEDS: ENOXAPARIN 30MG/0.3ML SYR SUBCUT SCH ×2 (09:22→21:40)
[2018-04-25] MEDS: METHIMAZOLE 5MG TABLET PO SCH ×2 (09:22→17:41)
[2018-04-25] MEDS ORDERED: LIDOCAINE HCL/EPINEPHRINE 1%-EPI 1:100,000 30 ML VIAL INFIL SCH (10:30)
[2018-04-25] MEDS ORDERED: LIDOCAINE HCL/EPINEPHRINE 1%-EPI 1:100,000 20 ML VIAL INFIL SCH (10:30)
[2018-04-26] VITALS: BP 136/51
[2018-04-26] MEDS: MORPHINE SULFATE 10MG/5ML ORAL SOLN UDC PO PRN ×2 (03:19→13:10)
[2018-04-26 04:00] VITALS: BP 158/68
[2018-04-26 08:00] VITALS: BP 149/64
[2018-04-26] MEDS: PROPRANOLOL HCL 10MG TABLET PO SCH ×2 (08:28→21:39)
[2018-04-26] MEDS: METHIMAZOLE 5MG TABLET PO SCH ×2 (08:29→18:10)
[2018-04-26] MEDS: HYDROCODONE/ACETAMINOPHEN 5/325MG TABLET PO SCH (08:29)
[2018-04-26] MEDS: OXYCODONE HCL 5MG TABLET PO SCH ×4 (08:29→21:39)
[2018-04-26] MEDS: ENOXAPARIN 30MG/0.3ML SYR SUBCUT SCH ×2 (08:30→21:39)
[2018-04-26] MEDS: NICOTINE 21MG PATCH TD SCH (08:30)
[2018-04-26 12:00] VITALS: BP 124/67
[2018-04-26 16:00] VITALS: BP 157/73
[2018-04-26 20:00] VITALS: BP 141/60
[2018-04-27] VITALS: BP 143/62
[2018-04-27] MEDS: MORPHINE SULFATE 10MG/5ML ORAL SOLN UDC PO PRN (03:46)
[2018-04-27 04:00] VITALS: BP 109/58
[2018-04-27 07:21] LABS: CHLORIDE 100 mEq/L (98-107)
[2018-04-27 07:44] LABS: BASOPHILS % 0.9 % (0.0-2.0); EOSINOPHILS % 5.9 % (0.0-5.0); HEMATOCRIT. 36.6 % (36.0-48.0); HEMOGLOBIN. 12.2 g/dL (12.0-16.0); LYMPHOCYTES % 28.4 % (20.0-50.0); MEAN CORPUSCULAR HEMOGLOBIN 29.1 pg (28.0-32.0); MEAN CORPUSCULAR VOLUME 87.3 fL (81.0-99.0); MEAN PLATELET VOLUME 8.9 fl (7.4-10.4); MONOCYTES % 13.3 % (2.0-8.0); NEUTROPHILS % 51.5 % (40.0-76.0); PLATELET 267 x1000/uL (130-400); RED CELL DISTRIBUTION WIDTH 14.3 % (11.6-14.6)
[2018-04-27 08:00] VITALS: BP 128/60
[2018-04-27] MEDS: NICOTINE 21MG PATCH TD SCH (09:13)
[2018-04-27] MEDS: METHIMAZOLE 5MG TABLET PO SCH ×2 (09:14→17:34)
[2018-04-27] MEDS: PROPRANOLOL HCL 10MG TABLET PO SCH ×2 (09:14→21:45)
[2018-04-27] MEDS: ENOXAPARIN 30MG/0.3ML SYR SUBCUT SCH ×2 (09:14→21:44)
[2018-04-27] MEDS: HYDROCODONE/ACETAMINOPHEN 5/325MG TABLET PO SCH (10:18)
[2018-04-27] MEDS: OXYCODONE HCL 5MG TABLET PO SCH ×4 (10:18→21:45)
[2018-04-27 12:00] VITALS: BP 131/65
[2018-04-27 16:00] VITALS: BP 138/57
[2018-04-27 20:00] VITALS: BP 132/61
[2018-04-27] MEDS ORDERED: LIDOCAINE HCL/EPINEPHRINE 1%-EPI 1:100,000 20 ML VIAL IJ SCH ×2 (22:30)
[2018-04-28] VITALS: BP 128/60
[2018-04-28 04:00] VITALS: BP 124/54
[2018-04-28 07:24] LABS: EOSINOPHILS % 5.4 % (0.0-5.0); HEMATOCRIT. 37.1 % (36.0-48.0); HEMOGLOBIN. 12.2 g/dL (12.0-16.0); LYMPHOCYTES % 28.3 % (20.0-50.0); MEAN CORPUSCULAR HEMOGLOBIN 28.6 pg (28.0-32.0); MEAN CORPUSCULAR VOLUME 87.3 fL (81.0-99.0); MEAN PLATELET VOLUME 8.5 fl (7.4-10.4); NEUTROPHILS % 53.3 % (40.0-76.0); PLATELET 267 x1000/uL (130-400); RED BLOOD CELL COUNT 4.25 mill/uL (4.2-5.4); RED CELL DISTRIBUTION WIDTH 14.5 % (11.6-14.6)
[2018-04-28 07:44] LABS: CHLORIDE 100 mEq/L (98-107)
[2018-04-28 08:00] VITALS: BP 135/59
[2018-04-28] MEDS: PROPRANOLOL HCL 10MG TABLET PO SCH ×2 (08:05→21:57)
[2018-04-28] MEDS: HYDROCODONE/ACETAMINOPHEN 5/325MG TABLET PO SCH (08:06)
[2018-04-28] MEDS: METHIMAZOLE 5MG TABLET PO SCH ×2 (08:06→17:08)
[2018-04-28] MEDS: ENOXAPARIN 30MG/0.3ML SYR SUBCUT SCH ×2 (08:07→21:59)
[2018-04-28] MEDS: OXYCODONE HCL 5MG TABLET PO SCH ×4 (08:07→21:59)
[2018-04-28] MEDS: NICOTINE 21MG PATCH TD SCH (08:08)
[2018-04-28] MEDS: CYANOCOBALAMIN 1000MCG/ML VIAL IM SCH (10:18)
[2018-04-28 12:00] VITALS: BP 125/62
[2018-04-28 16:00] VITALS: BP 135/65
[2018-04-28] MEDS: MORPHINE SULFATE 10MG/5ML ORAL SOLN UDC PO PRN (16:29)
[2018-04-28] MEDS ORDERED: OXYCODONE HCL 5MG TABLET PO PRN (16:30)
[2018-04-28 21:55] VITALS: BP 141/64
[2018-04-29] VITALS: BP 121/58
[2018-04-29 04:00] VITALS: BP 141/52
[2018-04-29 07:47] LABS: EOSINOPHILS % 5.6 % (0.0-5.0); HEMATOCRIT. 38.4 % (36.0-48.0); HEMOGLOBIN. 12.8 g/dL (12.0-16.0); LYMPHOCYTES % 27.9 % (20.0-50.0); MEAN CORPUSCULAR HEMOGLOBIN 29.2 pg (28.0-32.0); MEAN CORPUSCULAR VOLUME 87.4 fL (81.0-99.0); MEAN PLATELET VOLUME 8.6 fl (7.4-10.4); MONOCYTES % 12.1 % (2.0-8.0); NEUTROPHILS % 53.4 % (40.0-76.0); PLATELET 299 x1000/uL (130-400); RED CELL DISTRIBUTION WIDTH 14.4 % (11.6-14.6)
[2018-04-29 08:00] VITALS: BP 116/49
[2018-04-29 08:18] LABS: CHLORIDE 99 mEq/L (98-107)
[2018-04-29] MEDS: NICOTINE 21MG PATCH TD SCH (09:00)
[2018-04-29] MEDS: METHIMAZOLE 5MG TABLET PO SCH ×2 (09:23→17:26)
[2018-04-29] MEDS: CYANOCOBALAMIN 1000MCG/ML VIAL IM SCH (09:23)
[2018-04-29] MEDS: PROPRANOLOL HCL 10MG TABLET PO SCH ×2 (09:23→21:13)
[2018-04-29] MEDS: ENOXAPARIN 30MG/0.3ML SYR SUBCUT SCH ×2 (09:23→21:15)
[2018-04-29] MEDS: HYDROCODONE/ACETAMINOPHEN 5/325MG TABLET PO SCH (09:24)
[2018-04-29] MEDS: OXYCODONE HCL 5MG TABLET PO SCH ×4 (09:25→21:15)
[2018-04-29] MEDS ORDERED: LIDOCAINE HCL/EPINEPHRINE 1%-EPI 1:100,000 20 ML VIAL INFIL NR (09:45)
[2018-04-29 12:00] VITALS: BP 114/59
[2018-04-29 16:00] VITALS: BP 119/62
[2018-04-29 20:00] VITALS: BP 146/56
[2018-04-30] VITALS (7 sets, daily range): BP systolic 113–151; BP diastolic 46–57
[2018-04-30] MEDS: NICOTINE 21MG PATCH TD SCH (09:00)
[2018-04-30] MEDS: OXYCODONE HCL 5MG TABLET PO SCH ×3 (10:09→18:52)
[2018-04-30] MEDS: CYANOCOBALAMIN 1000MCG/ML VIAL IM SCH (10:09)
[2018-04-30] MEDS: PROPRANOLOL HCL 10MG TABLET PO SCH (10:09)
[2018-04-30] MEDS: METHIMAZOLE 5MG TABLET PO SCH ×2 (10:09→18:52)
[2018-04-30] MEDS: ENOXAPARIN 30MG/0.3ML SYR SUBCUT SCH (10:09)
[2018-05-03 14:22] LABS: 25-HYDROXY VITAMIN D3 11 ng/mL (.)
== END 2018-04-30 20:55 | DRG 853 ==
LOC: ER 19:26 → 5WST 22:59 → EDBEDREQTM 23:20 → EDBEDREQ 23:20 → EDBEDREQSVC 23:20 → ENRESERV 04-10 07:06 → 5WST 04-10 10:05
PROVIDERS: ADMIT Internal Medicine; ATTEND Internal Medicine
PROC: 0JB90ZZ Excision of Buttock Subcutaneous Tissue and Fascia, Open Approach (ICD-10-PCS; principal; 2018-04-11)
PROC: 0JB70ZZ Excision of Back Subcutaneous Tissue and Fascia, Open Approach (ICD-10-PCS; 2018-04-11)
PROC: 0JB90ZZ Excision of Buttock Subcutaneous Tissue and Fascia, Open Approach (ICD-10-PCS; 2018-04-19)
PROC: 0QSH36Z Reposition Left Tibia with Intramedullary Internal Fixation Device, Percutaneous Approach (ICD-10-PCS; 2018-04-22)
PROC: 0JB70ZZ Excision of Back Subcutaneous Tissue and Fascia, Open Approach (ICD-10-PCS; 2018-04-25)
PROC: 0JB90ZZ Excision of Buttock Subcutaneous Tissue and Fascia, Open Approach (ICD-10-PCS; 2018-04-29)
PROC: 0KBG0ZZ Excision of Left Trunk Muscle, Open Approach (ICD-10-PCS; 2018-04-29)
DX: A41.9 Sepsis, unspecified organism (principal); L89.323 Pressure ulcer of left buttock, stage 3; L89.153 Pressure ulcer of sacral region, stage 3; E43 Unspecified severe protein-calorie malnutrition; G92 Toxic encephalopathy; J18.1 Lobar pneumonia, unspecified organism; N39.0 Urinary tract infection, site not specified; E87.1 Hypo-osmolality and hyponatremia; I96 Gangrene, not elsewhere classified; J44.0 Chronic obstructive pulmonary disease with (acute) lower respiratory infection; D64.9 Anemia, unspecified; E66.9 Obesity, unspecified; E86.0 Dehydration; E87.8 Other disorders of electrolyte and fluid balance, not elsewhere classified; F09 Unspecified mental disorder due to known physiological condition; F17.210 Nicotine dependence, cigarettes, uncomplicated; F39 Unspecified mood [affective] disorder; G31.9 Degenerative disease of nervous system, unspecified; G93.89 Other specified disorders of brain; I11.0 Hypertensive heart disease with heart failure; I50.9 Heart failure, unspecified; M46.90 Unspecified inflammatory spondylopathy, site unspecified; M47.9 Spondylosis, unspecified; M48.061 Spinal stenosis, lumbar region without neurogenic claudication; R32 Unspecified urinary incontinence; Z53.20 Procedure and treatment not carried out because of patient's decision for unspecified reasons; W10.8XXA Fall (on) (from) other stairs and steps, initial encounter; R58 Hemorrhage, not elsewhere classified; F10.10 Alcohol abuse, uncomplicated; S82.302A Unspecified fracture of lower end of left tibia, initial encounter for closed fracture; E05.90 Thyrotoxicosis, unspecified without thyrotoxic crisis or storm; B96.20 Unspecified Escherichia coli [E. coli] as the cause of diseases classified elsewhere; Z68.36 Body mass index [BMI] 36.0-36.9, adult; Z83.3 Family history of diabetes mellitus; Z86.73 Personal history of transient ischemic attack (TIA), and cerebral infarction without residual deficits; Z91.19 Patient's noncompliance with other medical treatment and regimen; Y93.89 Activity, other specified; Y92.89 Other specified places as the place of occurrence of the external cause; Y99.8 Other external cause status
CPT/HCPCS: 36415; 70551; 71045; 72141; 72148; 73502; 73590; 76536; 80048; 80061; 80305; 82140; 82306; 82607; 82746; 82962; 83036; 83520; 83605; 83880; 84134; 84145; 84439; 84443; 84481; 84484; 86376; 87070; 87077; 87186; 90686; 90732; 92523; 93005; 93306; 93970; 96365; 97110; 97162; 97167; 97530; 97535; 99291; A4216; C1713; C1893; G0482; G0515; J0171; J0330; J0690; J0696; J1170; J1650; J1956; J2060; J2250; J2270; J2405; J2704; J2710; J2765; J2795; J3010; J3370; J3420; J3490; J7030; J7050; A4315